=== PATIENT | female | born 1995 | race Caucasian/White ===

== ENCOUNTER 2019-12-23 01:44 | Outpatient (CLI) | payer BC, SELFPAY ==
[2019-12-23 22:35] LABS: SARS-CoV-2 RNA PCR Negative
== END 2019-12-23 01:45 | disposition home or self-care (01) ==
LOC: ANHCOVIDDT 01:44
PROVIDERS: PCP Family Medicine; Visit Provider Obstetrics & Gynecology
DX: Z01.812 Encounter for preprocedural laboratory examination (principal); Z11.59 Encounter for screening for other viral diseases
CPT/HCPCS: 87635; C9803; U0003

== ENCOUNTER 2019-12-23 08:48 | Outpatient (CLI) | payer BC, SELFPAY | END 2019-12-23 08:49 | disposition home or self-care (01) | LOC: ANHSURGERY 08:52 | PROVIDERS: PCP Family Medicine; Visit Provider Obstetrics & Gynecology | DX: Z01.818 Encounter for other preprocedural examination (principal); R10.2 Pelvic and perineal pain | CPT/HCPCS: 36415; 86850; 86900; 86901 ==

== ENCOUNTER 2019-12-25 01:37 | Day surgery (SDC) | payer BC, SELFPAY ==
[2019-12-14 13:31] VITALS: BMI 45.3
--- NOTE | 2019-12-23 07:20 | P.HP_ITS ---
H&P: HPI History of Present Illness Date/Time: 12/23/19 07:20 Chief complaint: Pelvic Pain Narrative: Nevaeh Briones is a 24 year old female G0 is admitted for diagnostic laparoscopy. She had complained of pelvic pain and does RUTH a period she underwent an ultrasound which showed a large ovarian cyst just above the uterus. I offered her watchful waiting versus considering laparoscopy. As this has been an ongoing issue she opted for the latter. Risks and benefits were reviewed including but not exclusive of , aspiration pneumonia, bleeding, transfusion, perforation injury to bowel, bladder, ureters, or other internal organs with need for open laparotomy. She voiced good understanding. She received the [facility] [place] [place] handout entitled laparoscopy. She asked to proceed Review of Systems Review of Systems: All systems reviewed & are unremarkable except as noted in HPI and below PMFSH Family History Family History Grandparent Hypertension Family history of congestive heart failure Diabetes mellitus Other Family history of arthritis Family history of lung cancer Family history of malignant neoplasm Social History Social History Smoking status: Never smoker Alcohol intake: current Drinks per week: 2 Substance use: former Substance use type: marijuana Last use: 04/2019 Spiritual care concerns: No Meds Home Medications and Allergies Home Medications Medication Instructions Recorded Confirmed Type norgestimate-ethinyl estradiol 1 tablet PO DAILY 12/14/19 12/14/19 History [Estarylla] Allergies Allergy/AdvReac Type Severity Reaction Status Date / Time Penicillins Allergy UNKNOWN Verified 12/14/19 13:32 REACTION Exam Const: General: no acute distress Eyes: General: appearance normal, both eyes and all related structures Neck: Neck: supple and no JVD Thyroid: thyroid normal Resp: Effort & Inspection: normal respiratory effort Auscultation: clear to auscultation bilaterally Cardio: Rate: regular rate Rhythm: regular rhythm GI: Inspection: non-distended GI Palp: Yes Soft to palpation, No Tenderness to palpation present (GI) and No Guarding due to palpation present (GI) Auscultation: normal bowel sounds : General: Yes bladder normal to inspection External Female Exam: normal external appearance Speculum Exam - Vagina: normal appearance of the vagina Speculum Exam - Cervix: normal appearance of the cervix Bimanual exam- vagina & uterus: uterine mobility normal Bimanual Exam- Adnexa, other: tender ( there is fullness felt above the uterus consistent with ovarian mass) Skin: General skin exam: no rashes or lesions noted Extrem: General: normal to inspection and no edema Psych: Mental Status: mental status grossly normal Affect: normal affect Assessment and Plan Additional Plan impression: Pelvic pain and ovarian cyst Plan: Diagnostic laparoscopy
--- NOTE | 2019-12-23 07:24 | PM.IMHP ---
H&P: HPI History of Present Illness Date/Time: 12/23/19 07:24 Chief complaint: Pelvic Pain Narrative: Nevaeh Briones is a 24 year old female is admitted for diagnostic laparoscopy secondary to pelvic pain. She has had dyspareunia and severe discomfort. She had a negative STD test. Ultrasound has shown relatively normal findings with possible fibroids. Free fluid was seen. Risks and benefits were reviewed including but not exclusive of , aspiration pneumonia, bleeding, transfusion, perforation near to bowel, bladder, ureters, or other internal organs with need for open laparotomy. She received the [facility] handout entitled laparoscopy. She had all questions answered. She asked to proceed Review of Systems Review of Systems: All systems reviewed & are unremarkable except as noted in HPI and below PMFSH Family History Family History Grandparent Hypertension Family history of congestive heart failure Diabetes mellitus Other Family history of arthritis Family history of lung cancer Family history of malignant neoplasm Social History Social History Smoking status: Never smoker Alcohol intake: current Drinks per week: 2 Substance use: former Substance use type: marijuana Last use: 04/2019 Spiritual care concerns: No Meds Home Medications and Allergies Home Medications Medication Instructions Recorded Confirmed Type norgestimate-ethinyl estradiol 1 tablet PO DAILY 12/14/19 12/14/19 History [Estarylla] Allergies Allergy/AdvReac Type Severity Reaction Status Date / Time Penicillins Allergy UNKNOWN Verified 12/14/19 13:32 REACTION Exam Const: General: no acute distress Eyes: General: appearance normal, both eyes and all related structures Neck: Neck: supple and no JVD Thyroid: thyroid normal Resp: Effort & Inspection: normal respiratory effort Auscultation: clear to auscultation bilaterally Cardio: Rate: regular rate Rhythm: regular rhythm GI: Inspection: non-distended GI Palp: Yes Soft to palpation, No Tenderness to palpation present (GI) and No Guarding due to palpation present (GI) Auscultation: normal bowel sounds : General: Yes bladder normal to palpation External Female Exam: normal external appearance Speculum Exam - Vagina: normal vaginal discharge and No vaginal bleeding Speculum Exam - Cervix: nontender Bimanual exam- vagina & uterus: bladder normal to palpation and No Cervical tenderness present OB/external & speculum: No vaginal bleeding Skin: General skin exam: no rashes or lesions noted Extrem: General: normal to inspection and no edema Psych: Mental Status: mental status grossly normal Affect: normal affect Assessment and Plan Additional Plan impression: Pelvic pain mildly enlarged uterus Plan: Diagnostic laparoscopy
--- NOTE | 2019-12-24 13:06 | WPDANESEPPF ---
Anes - Initial Pre Proc Eval Procedure: Operation Date: 12/25/19 11:30 Proposed Procedures p Diagnostic Laparoscopy - Curtis Sandhu MD Date/Time: 12/24/19 13:06 Surgeon: Curtis Sandhu MD Pre Op Diagnosis: Pelvic Pain Patient Data Age: 24 Gender: F Height: 1.68 m Weight: 127.46 kg Allergies Allergy/AdvReac Type Severity Reaction Status Date / Time Penicillins Allergy Intermediate UNKNOWN Verified 12/25/19 10:16 REACTION Home Medications Medication Instructions Recorded Confirmed Type norgestimate-ethinyl estradiol 1 tablet PO DAILY 12/14/19 12/25/19 History [Estarylla] hydrocodone-acetaminophen 1 tablet PO Q6H PRN #30 tablet 12/25/19 Rx Patient hx anesthesia problems: none Family hx anesthesia problems: none PMFSH Past Medical History Medical History (Updated 12/24/19 @ 13:07 by Milad Li MD) Anxiety Depression Morbid obesity with BMI of 40.0-44.9, adult Family History Family History Grandparent Hypertension Family history of congestive heart failure Diabetes mellitus Other Family history of arthritis Family history of lung cancer Family history of malignant neoplasm Social History Social History Smoking status: Never smoker Alcohol intake: current Drinks per week: 2 Substance use: former Substance use type: marijuana Last use: 04/2019 Spiritual care concerns: No Anes - Eval Final PreProcedure Day of Procedure 12/24/19 13:06 Patient weight: obese Heart: regular rate and rhythm Lungs: clear to auscultation and normal air movement Airway: Mallampati scale class II Neurological: alert and oriented Last oral intake: >/= 8 hours ASA classification: III Emergent: no Anesthetic plan: proceed Anesthesia type and monitoring: general ETT Informed Consent: The patient's anesthetic plan and its attendant risks and benefits were discussed with the patient/family/POA. Questions were solicited and answers provided to the satisfaction of the patient/family/POA.
[2019-12-25] VITALS (7 sets, daily range): BP systolic 116–144; BP diastolic 55–91; PULSE 45–98; RESP 14–20; TEMP 36.3–37.2; O2SAT 96–100
--- NOTE | 2019-12-25 06:24 | WPDHPUPDATE1 ---
History and Physical Update Update Date/Time: 12/25/19 06:24 History and Physical has been reviewed, including an updated exam of the patient. There are NO changes in the patient's condition. Risks, benefits, and alternatives have been discussed and questions answered. Patient agrees to proceed with procedure.
--- NOTE | 2019-12-25 06:25 | WPDHPUPDATE1 ---
History and Physical Update Update Date/Time: 12/25/19 06:25 History and Physical has been reviewed, including an updated exam of the patient. There are NO changes in the patient's condition. Risks, benefits, and alternatives have been discussed and questions answered. Patient agrees to proceed with procedure.
[2019-12-25] MEDS: ACETAMINOPHEN 500 MG TABLET 1000 MG PO (10:19)
[2019-12-25] MEDS: KETOROLAC 15 MG/ML VIAL (*BKC) IV PUSH (10:28)
[2019-12-25] MEDS: LACTATED RINGERS 1,000 ML 30 ML IV CONT (10:28)
--- NOTE | 2019-12-25 11:16 | PM.PROC ---
Procedure Note - Detailed Date of procedure: 12/25/19 Pre-op diagnosis: Pelvic Pain Surgeon: Curtis Sandhu MD Postop diagnosis: Pelvic pain / endometriosis anesthesia: General endotracheal Complications: None Findings: Normal-appearing ovaries and tubes endometrial implants along the left and right uterosacral ligaments. Normal-appearing appendix Procedure: Laparoscopic destruction of endometriosis Description of procedure. : Patient was prepped draped in the normal sterile fashion placed in the dorsal lithotomy position. Under excellent general trach anesthesia weighted speculum placed in posterior fornix of vagina. The anterior lip of the cervix grasped with a single-tooth tenaculum. The Villatoro's cannula was inserted the cervix and attached to the single-tooth. Bladder was emptied of clear urine. Gloves were changed. An infraumbilical incision made. The Veress needle passed in the abdomen. The abdomen was filled with CO2 gas [id number]. The 5mm trocar was advanced under direct visualization assuring no injury. The patient was placed in Trendelenburg and a suprapubic incision made. The 5mm trocar advanced under direct visualization assuring no injury. Small areas of endometriosis were seen photo documentation was undertaken. These were then point cauterized at 35 w per 2nd with monopolar cautery. Irrigation was undertaken until clear. The lower site removed. The gas removed from the abdomen. The incisions closed with 4 Monocryl glue. The patient was awakened. She went to recovery in satisfactory condition. All sponge, needle, instrument counts were correct. There were no immediate complications
[2019-12-25] MEDS: fentaNYL CITRATE INJ (*CRX) 100 MCG/2 ML VIAL 25 MCG IV PUSH (11:42)
== END 2019-12-25 13:00 | disposition home or self-care (01) ==
PROVIDERS: PCP Family Medicine; Visit Provider Obstetrics & Gynecology
PROC: (CPT 49320; principal; 2019-12-25 11:30)
DX: R10.2 Pelvic and perineal pain (principal); N80.3 Endometriosis of pelvic peritoneum; F41.8 Other specified anxiety disorders; E66.01 Morbid (severe) obesity due to excess calories; Z68.42 Body mass index [BMI] 45.0-49.9, adult
CPT/HCPCS: 58662; A9270; J1885; J2250; J3010; J7120

== ENCOUNTER 2020-08-31 07:22 | Outpatient (CLI) | payer BC, SELFPAY ==
--- NOTE | ~2020-08-31 | CT_ITS ---
EXAMINATION: CT abdomen pelvis w con DATE: 08/31/2020 08:11 INDICATION: Abdominal pain. History of endometriosis, left ovarian cysts TECHNIQUE: Computed tomography (CT) of the abdomen and pelvis was performed with 100 cc Omnipaque 350 intravenous contrast. Automated exposure control and iterative reconstruction technique were employe d. Exam dose: 1405.22 mGy-cm total exam DLP. COMPARISON: None. FINDINGS: Normal heart size. No pericardial or pleural effusion. The lung bases are clear of infiltra te or consolidation. The liver, gallbladder, spleen, pancreas, and adrenal glands and kidneys appear normal. Normal calibe r of the abdominal aorta. No intraperitoneal or retroperitoneal or pelvic mass lesion or adenopathy o r ascites. The uterus, adnexal areas and urinary bladder appear normal. Normal appendix. No bowel obstruction, bowel wall thickening, pneumatosis or intraperitoneal free air . Included skeletal structures are unremarkable. IMPRESSION: No significant abnormality Reviewed, dictated and finalized at [facility]. Reviewed, dictated and finalized at location [facility]. IMPRESSION: No significant abnormality
== END 2020-08-31 07:23 | disposition home or self-care (01) ==
PROVIDERS: PCP Family Medicine; Visit Provider Nurse Practitioner Family
DX: R10.9 Unspecified abdominal pain (principal); N83.202 Unspecified ovarian cyst, left side
CPT/HCPCS: 74177; Q9967

== ENCOUNTER 2021-08-08 10:39 | Outpatient (CLI) | payer BC, SELFPAY ==
[2021-08-08 10:56] LABS: Basophils Absolute Auto 0.1 K/mm3 (0.0-0.1); Basophils Percent Auto 0.9 % (0.2-1.2); Eosinophils Absolute Auto 0.3 K/mm3 (0-0.3); Eosinophils Percent Auto 4.4 % (0-4.4); Hematocrit 39.8 % (37.0-47.0); Hemoglobin 13.4 g/dL (12.0-15.0); Immature Granulocyte Absolute 0.02 K/mm3 (0.00-0.031); Immature Granulocyte Percent A 0.3 % (0-0.5); Lymphocytes Absolute Auto 1.86 K/mm3 (0.9-3.2); Lymphocytes Percent Auto 28.1 % (18.3-44.2); Mean Corpuscular HGB Conc 33.7 g/dl (32-36); Mean Corpuscular Hemoglobin 30.4 pg (26-34); Mean Corpuscular Volume 90.2 fl (80-100); Mean Platelet Volume 10.7 fl (7.4-10.4); Monocytes Absolute Auto 0.5 K/mm3 (0.1-0.6); Monocytes Percent Auto 7.4 % (2.6-8.5); Neutrophils Absolute Auto 3.9 K/mm3 (1.3-6.7); Neutrophils Percent Auto 58.9 % (45.5-73.1); Platelet Count Result 223 k/mm3 (150-375); Red Blood Count 4.41 M/mm3 (4.2-5.4); Red Cell Distribution Width 11.9 % (11.5-14.5); White Blood Count 6.6 K/mm3 (4.5-10.0)
[2021-08-08 11:14] LABS: Alanine Aminotransferase 42 U/L (6-35); Albumin Level 4.2 g/dL (3.5-5.1); Alkaline Phosphatase 57 U/L (38-126); Anion Gap 7 mmol/L (8-16); Aspartate Amino Transferase 32 U/L (14-36); Bilirubin,Total 0.2 mg/dL (0.2-1.3); Blood Urea Nitrogen 9 mg/dL (7-17); Calcium 8.7 mg/dL (8.4-10.2); Carbon Dioxide 26 mmol/L (22-30); Chloride 107 mmol/L (98-107); Estimated Glomerular Filt Rate > 60; Glucose 99 mg/dL (65-110); Potassium 4.3 mmol/L (3.4-5.0); Sodium 140 mmol/L (137-145)
== END 2021-08-08 10:40 | disposition home or self-care (01) ==
LOC: ANHLAB 10:42
PROVIDERS: PCP Family Medicine; Visit Provider Nurse Practitioner Family
DX: R19.7 Diarrhea, unspecified (principal); R10.9 Unspecified abdominal pain; R10.812 Left upper quadrant abdominal tenderness
CPT/HCPCS: 36415; 80053; 85025

== ENCOUNTER 2021-08-08 12:52 | Outpatient (CLI) | payer BC, SELFPAY ==
--- NOTE | ~2021-08-08 | CT_ITS ---
EXAMINATION: CT abdomen pelvis w con INDICATION: Upper abdominal pain TECHNIQUE: Computed tomographic images of the abdomen and pelvis were obtained after the administrati on of 100 cc of Omnipaque 350 intravenous contrast. The dose-length product (DLP) was 1468.76 mGy-cm. Automated exposure control and iterative reconstruction technique were employed. COMPARISON: 08/31/2020 FINDINGS: Minimal dependent atelectasis is present in the lung bases. The heart size is normal. The l iver, spleen, pancreas, gallbladder, and adrenal glands are normal. The kidneys are unremarkable. No pathologically enlarged abdominal or pelvic lymph nodes are identified. The appendix is normal. There is no free intraperitoneal gas or evidence of bowel obstruction. IMPRESSION: 1. No CT correlate for the patient's symptoms. Reviewed, dictated and finalized at location [facility].
== END 2021-08-08 12:53 | disposition home or self-care (01) ==
PROVIDERS: PCP Family Medicine; Visit Provider Nurse Practitioner Family
DX: R10.812 Left upper quadrant abdominal tenderness (principal); R10.9 Unspecified abdominal pain
CPT/HCPCS: 74177; Q9967

== ENCOUNTER 2021-08-31 02:05 | Day surgery (SDC) | payer BC, SELFPAY ==
[2021-08-24 09:47] VITALS: BMI 44.3
[2021-08-31 12:25] VITALS: BP 121/70; PULSE 74; RESP 18; TEMP 36.6; O2SAT 100
[2021-08-31] MEDS: LACTATED RINGERS 1,000 ML 150 ML IV CONT (12:35)
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
[2021-08-31 13:26] VITALS: BP 116/72; PULSE 68; RESP 18; O2SAT 100
[2021-08-31 13:36] VITALS: BP 130/76; PULSE 70; RESP 18; O2SAT 100
[2021-08-31 13:46] VITALS: BP 128/74; PULSE 72; RESP 16; O2SAT 100
== END 2021-08-31 14:10 | disposition home or self-care (01) ==
PROVIDERS: PCP Family Medicine; Visit Provider Internal Medicine Gastroenterology
PROC: 0DJ08ZZ Inspection of Upper Intestinal Tract, Via Natural or Artificial Opening Endoscopic (ICD-10-PCS; CPT 43235; principal; 2021-08-31 13:30)
DX: K31.89 Other diseases of stomach and duodenum (principal); K21.9 Gastro-esophageal reflux disease without esophagitis; E66.01 Morbid (severe) obesity due to excess calories; Z68.41 Body mass index [BMI] 40.0-44.9, adult; F41.9 Anxiety disorder, unspecified; F32.A Depression, unspecified; F12.90 Cannabis use, unspecified, uncomplicated
CPT/HCPCS: 43239; 87081; 88305; J2704; J7120

== ENCOUNTER 2021-09-08 15:07 | Outpatient (CLI) | payer BC, SELFPAY ==
[2021-09-14 15:30] LABS: Gliadin AB, IgG 100.2 U/mL (<15.0); TTG IGA AB >250.0 U/mL (<15.0)
== END 2021-09-08 15:08 | disposition home or self-care (01) ==
LOC: ANHLAB 15:07
PROVIDERS: PCP Family Medicine; Visit Provider Internal Medicine Gastroenterology
DX: R19.7 Diarrhea, unspecified (principal)
CPT/HCPCS: 36415; 83516; 86255

== ENCOUNTER 2021-12-19 16:12 | Outpatient (CLI) | payer BC, SELFPAY ==
[2021-12-19 16:42] LABS: Hemoglobin A1C 5.5 % (<5.7)
== END 2021-12-19 16:13 | disposition home or self-care (01) ==
LOC: ANHLAB 16:14
PROVIDERS: PCP Family Medicine; Visit Provider Nurse Practitioner Family
DX: R73.09 Other abnormal glucose (principal); F41.9 Anxiety disorder, unspecified
CPT/HCPCS: 36415; 83036; 84443

== ENCOUNTER 2022-01-03 13:40 | Outpatient (CLI) | payer BC, SELFPAY ==
--- NOTE | 2022-01-03 13:52 | ECHO_ITS ---
Patient Info Name: Nevaeh Briones Age: 26 years : 1995 Gender: Female Ht: 66 in Wt: 265 lbs BSA: 2.43 m2 HR: 71 bpm BP: 85 / 64 mmHg Technical Quality: Good Exam Date: 01/03/2022 2:32 PM Exam Location: [facility] Patient Status: Outpatient Admit Date: 01/03/2022 Staff Ordering Physician: Cristy Le Material Analyst: Gavino Torres, STEPHANIE, RT Attending Provider: Cristy Le Referring Physician: Mimi IBRAHIM; Exam Type: CA echo doppler color flow Study Info Indications Z82.79 - Family history of other congenital malformations, deformations and chromosomal abnormalities Complete two-dimensional, color flow and Doppler transthoracic echocardiogram is performed. Strain analysis performed. Summary 1. Complete two-dimensional, color flow and Doppler transthoracic echocardiogram is performed. 2. Left ventricular chamber dimension is normal. 3. Left ventricular systolic function is normal, estimated at 55-60%. 4. The left ventricular diastolic function is normal. 5. E/e' 6 is not elevated. 6. Global longitudinal strain is normal at -17.3%. Left Ventricle E/e' 6 is not elevated. Global longitudinal strain is normal at -17.3%. Left ventricular chamber dimension is normal. Left ventricular systolic function is normal, estimated at 55-60%. The left ventricular diastolic function is normal. Right Ventricle Right ventricular systolic function is normal and with normal TAPSE 2.3 cm. Right ventricular chamber dimension is normal. Left Atria Left atrial chamber dimension is normal. Right Atria Right atrial chamber dimension is normal. Aortic Valve The aortic valve is trileaflet. There is no aortic valve stenosis. There is no aortic valve regurgitation. Pulmonic Valve There is no pulmonic regurgitation. Mitral Valve There is no mitral valve stenosis. There is no mitral valve regurgitation. Tricuspid Valve There is no tricuspid valve regurgitation. Pericardium/Pleural There is no pericardial effusion. Inferior Vena Cava Normal inferior vena cava with >50% collapse upon inspiration consistent with normal right atrial pressure, 5 mmHg. Aorta The aortic root size at the sinus of Valsalva is normal. Left Ventricular Outflow Tract Name Value Normal LVOT 2D LVOT Diameter 2.0 cm LVOT Doppler LVOT Peak Gradient 6 mmHg LVOT Mean Gradient 3 mmHg LVOT VTI 25 cm LVOT VTI/AV VTI Ratio 0.7 LVOT Stroke Volume 77 ml LVOT CO 4.8 l/min LVOT CI 2.0 l/min/m2 Mitral Valve Name Value Normal MV Doppler MV Decel [place] 490 cm/s2 MV PHT 52
== END 2022-01-03 13:41 | disposition home or self-care (01) ==
PROVIDERS: PCP Family Medicine; Visit Provider Nurse Practitioner Family
DX: Z86.79 Personal history of other diseases of the circulatory system (principal); Z82.49 Family history of ischemic heart disease and other diseases of the circulatory system
CPT/HCPCS: 93306

== ENCOUNTER 2023-06-20 10:03 | Emergency (ER) | payer OTHER, SELFPAY ==
[2023-06-20 10:06] VITALS: BP 126/114; PULSE 87; RESP 16; TEMP 36.9; O2SAT 97
[2023-06-20 10:25] LABS: Basophils Percent Auto 0.1 % (0.2-1.2); Eosinophils Percent Auto 0.1 % (0-4.4); Hematocrit 40.3 % (37.0-47.0); Hemoglobin 13.4 g/dL (12.0-15.0); Immature Granulocyte Absolute 0.04 K/mm3 (0.00-0.031); Immature Granulocyte Percent A 0.3 % (0-0.5); Lymphocytes Percent Auto 6.1 % (18.3-44.2); Mean Corpuscular HGB Conc 33.3 g/dl (32-36); Mean Corpuscular Hemoglobin 29.8 pg (26-34); Mean Corpuscular Volume 89.8 fl (80-100); Mean Platelet Volume 10.4 fl (7.4-10.4); Monocytes Absolute Auto 0.3 K/mm3 (0.1-0.6); Monocytes Percent Auto 2.4 % (2.6-8.5); Neutrophils Absolute Auto 10.5 K/mm3 (1.3-6.7); Platelet Count Result 303 k/mm3 (150-375); Red Blood Count 4.49 M/mm3 (4.2-5.4); Red Cell Distribution Width 12.4 % (11.5-14.5); White Blood Count 11.5 K/mm3 (4.5-10.0)
[2023-06-20 10:34] LABS: Alanine Aminotransferase 21 U/L (6-35); Albumin Level 4.6 g/dL (3.5-5.1); Alkaline Phosphatase 73 U/L (38-126); Anion Gap 14 mmol/L (4-12); Aspartate Amino Transferase 19 U/L (14-36); Bilirubin,Total 0.5 mg/dL (0.2-1.3); Blood Urea Nitrogen 8 mg/dL (7-17); Calcium 9.6 mg/dL (8.4-10.2); Carbon Dioxide 16 mmol/L (22-30); Chloride 107 mmol/L (98-107); Estimated CRCL calculation 172 ml/min; Estimated Glomerular Filt Rate > 60; Glucose 141 mg/dL (65-110); Lipase 59 U/L (23-300); Potassium 3.7 mmol/L (3.4-5.0); Sodium 137 mmol/L (137-145)
[2023-06-20 10:40] VITALS: O2SAT 100
[2023-06-20] MEDS: SODIUM CHLORIDE 0.9% IV 1,000 ML 999 ML IV CONT (10:46)
[2023-06-20] MEDS: ONDANSETRON INJ 4 MG/2 ML VIAL IV PUSH (10:47)
[2023-06-20] MEDS: MORPHINE SULFATE (*CRX) 4 MG/ML INJ IV PUSH (10:47)
[2023-06-20 10:51] LABS: Appearance Urine Clear (Clear); Bilirubin Urine Negative (Negative); Blood Urine Negative (Negative); Color Urine Yellow (Yellow); Glucose Urine UA Negative (Negative); Ketones Urine 1+ mg/dL (Negative); Leukocyte Esterase Ur Negative LEU/UL (Negative); Nitrate Urine Negative (Negative); Protein Urine Negative (Negative); Specific Grav Ur 1.014 (1.001-1.035); Urobilinogen Urine 0.2 mg/dL (<2.0)
[2023-06-20 11:05] LABS: Add Urine Microscopic? NO
[2023-06-20 11:45] VITALS: O2SAT 99
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
[2023-06-20 12:15] VITALS: BP 119/65; PULSE 83; RESP 12; O2SAT 99
[2023-06-20 12:18] VITALS: BP 132/64; PULSE 86; RESP 16; O2SAT 99
== END 2023-06-20 14:00 | disposition home or self-care (01) ==
PROVIDERS: Emergency Provider Emergency Medicine; PCP Family Medicine
DX: K52.9 Noninfective gastroenteritis and colitis, unspecified (principal); E66.01 Morbid (severe) obesity due to excess calories; Z68.42 Body mass index [BMI] 45.0-49.9, adult
CPT/HCPCS: 36415; 80053; 81003; 81025; 83690; 85025; 96374; 96375; 99284; J2270; J2405; J7030

== ENCOUNTER 2024-07-18 08:14 | Emergency (ER) | payer OTHER, SELFPAY ==
--- OUTSIDE RECORDS SUMMARY | 2024-07-18 08:16 | XMS_ITS ---
Author Organization [facility] [place] ([address]) Address [address] [place] [address] Care Team Providers Care Engagement Manager Name Role Phone Renée EDDY, Cristóbal Primary Care Provider Unavaila Yana Light Unavailable [phone] ZZ-Migration, Provider Unavailable Unavailab le REASON FOR VISIT [facility] Conversion Encounter Medications Medication SIG (Take, Route, Frequency, Duration) Notes Start Date End Date Status Levocetirizine Dihydrochloride 5 MG 1 tab(s) orally once a day (in the evening) for 30 day(s) 08/18/2019 Active CONTROL PILL 1 TABLET BY MOUTH DAILY for 30 DAYS *Please review for potential replacement for e-prescription and drug interaction check* Active predniSONE 20 MG 2 tab(s) orally once a day for 4 day(s) 08/18/2019 Active Xyzal Allergy 24HR 5 MG 1 tab(s) orally once a day (in the evening) for 30 day(s) Active Auvi-Q 0.3 MG/0.3ML as directed intramuscularly once for 30 day(s) 08/18/2019 Active Nasacort Allergy 24HR 55 MCG/ACT 2 spray(s) intranasally once a day for 30 day(s) 08/18/2019 Active Montelukast Sodium 10 MG 1 tab(s) orally once a day for 30 day(s) 08/18/2019 Active Fexofenadine HCl 180 MG 1 tab(s) orally once a day for 30 day(s) 08/18/2019 Active Encounters Encounter Location Date Provider Diagnosis [place] [address] [place] [address] 08/03/2023 Provider ZARINA-Migration Plan Of Treatment No Information Progress Notes * Nevaeh WOODOB: 7 (28 yo F)Acc No.[id number]:08/03/2023 Patient: Nevaeh DARLING Provider: Nishant Sierra :1995 A ge:27 Y S ex:Female Date:08/03/2023 Address:[address] [place] [address], [facility] Pcp:Cristóbal Chinchilla MD Subjective: * Chief Complaints: * 1 . [facility] To Med[facility] Conversion Encounter. * Medical History: * Medications: T aking Auvi-Q 0.3 MG/0.3ML Solution Auto-injector as directed intramuscularly once , Taking Montelukast Sodium 10 MG Tablet 1 tab(s) orally once a day , Taking Nasacort Allergy 24HR 55 MCG/ACT Aerosol 2 spray(s) intranasally once a day , Taking Fexofenadine HCl 180 MG Tablet 1 tab(s) orally once a day , Taking Levocetirizine Dihydrochloride 5 MG Tablet 1 tab(s) orally once a day (in the evening) , Taking predniSONE 20 MG Tablet 2 tab(s) orally once a day , Taking CONTROL PILL 1 TABLET BY MOUTH DAILY , Notes to Pharmacist: *Please review for potential replacement for e-prescription and drug interaction check*, Taking Xyzal Allergy 24HR 5 MG Tablet 1 tab(s) orally once a day (in the evening) Objective: * Vitals: Assessment: Plan: * Treatment: * Billing Information: * Visit Code: * Procedure Codes: * Electronic signature of Prov syedr ZZ-Migration on 07/18/2024 at 08:16 AM CDT Sign off status: Pending * Provider: Nishant Sierra Date: 08/03/2023 Generated for Johana rosales/Jeff/eTransmitting on: 07/18/2024 08:16 AM CDT
--- OUTSIDE RECORDS SUMMARY | 2024-07-18 08:16 | XMS_ITS | Referral Summary ---
Author Organization [facility] Address [address] [place] [address] Care Team Providers Care Western Tack Assembly Line Worker Name Role Phone Cristóbal Chinchilla MD Primary Care Provider [phone] Allergies Active Allergy Reactions Criticality Noted Date Comments Gluten Stomach upset Low 05/01/2022 Medications HYDROcodone-acetam inophen (NORCO) 5-325 mg per tabletIndications: Pain Take 1 tablet by mouth every 4 (four) hours as needed for pain 20 tablet 05/04/19 23 Active Additional Information Patient not taking.Reported on 07/19/2022 Estarylla 0.25-35 mg-mcg per tablet 04/13/19 23 Active ondansetron ODT (ZOFRAN-ODT) 4 mg disintegrating tablet Take 1 tablet (4 mg total) by mouth every 8 (eight) hours as needed for nausea or vomiting 20 tablet 11/18/19 23 Active loperamide (IMODIUM) 2 mg capsule Take 1 capsule (2 mg total) by mouth 4 (four) times a day as needed for diarrhea 12 capsule 11/18/19 23 Active scopolamine 1 mg over 3 days patch [address] 1 patch on the skin every third day 3 patch 06/21/19 24 Active Active Problems No known active problems Social History Tobacco Use Types Packs/Day Years Used Date Smoking Tobacco: Every Day Vaping Tobacco Cessation:Ready to Q uit: Not Asked; Counseling Given: Not Answered AUDIT-C Answer Date Recorded Q1: How often do you have a drink containing alc ohol? 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 Gender Identity Not on file Sexual Orientation Not on file Last Filed Vital Signs Vital Sign Reading Time Taken Comments Blood Pressure 152/96 06/21/2023 11:42 AM CDT Pulse 66 06/21/2023 11:42 AM CDT Temperature 37.2 C (99 F) 06/21/2023 9:16 AM CDT Respiratory Rate 22 06/21/2023 11:42 AM CDT Oxygen Saturation 100% 06/21/2023 11:42 AM CDT Inhaled Oxygen Concentration - - Weight 133.8 kg (295 lb) 06/21/2023 9:16 AM CDT Height 167.6 cm (5' 6) 06/21/2023 9:16 AM CDT Body Mass Index 47.61 06/21/2023 9:16 AM CDT Plan of Treatment Not on file Insurance [employer] OPEN ACCESS [employer] OPEN ACCESS Care Teams Western Tack Assembly Line Worker Relationship Specialty Start Date End Date Cristóbal Chinchilla MD PCP - General 07/08/18
--- OUTSIDE RECORDS SUMMARY | 2024-07-18 08:16 | XMS_ITS | Clinical Summary ---
Author Organization [facility] Address [address] [place] [address] Care Team Providers Care Communications Equipment Supervisor Name Role Phone Cristóbal Chinchilla MD Primary Care Provider [phone] Allergies Active Allergy Reactions Criticality Noted Date [...] Active Active Problems No known active problems Medical History Medical History Date Comments Allergies Anxiety Depression Family History Medical History Relation Name Comments No Known Problems Father No Known Problems Mother Relation Name Status Comments Father Mother Social History Tobacco Use Types Packs/Day Years [...] on file 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 Gender Identity Not on file Sexual Orientation Not on file Obstetrics History Last Filed Vital Signs Vital Sign Reading [...] 06/21/2023 9:16 AM CDT Plan of Treatment Health Maintenance Due Date Last Done Comments Cervical Cancer Screening 1996 Depression Screening 1996 Hepatitis C Screening 1996 Varicella Vaccines (1 of 2 - 13+ 2-dose series) 2009 Hepatitis B Screening 2014 Regular Well Visit/Exam 18-64 2014 Pneumococcal vaccine <65 (1 of 2 - PCV) 09/04/2015 DTaP/Tdap/Td Vaccine (2 - Td or Tdap) 08/30/2020 08/30/2010 Influenza Vaccine (Season Ended) 2024 HPV Vaccines Aged Out No longer eligi ble based on patient's age to complete this topic Insurance [employer] OPEN ACCESS Care Teams Communications Equipment Supervisor Relationship Specialty Start Date End Date Cristóbal Chinchilla MD PCP - General 07/08/18
--- OUTSIDE RECORDS SUMMARY | 2024-07-18 08:16 | XMS_ITS | Clinical Summary ---
Author Organization [facility] Address [address] [place] [address] Care Team Providers Care Fish Bin Tender Name Role Phone Cristóbal Chinchilla MD Primary Care Provider [phone] Source Comments [facility],non-owned Affiliates and Associated Physician Practices is amultiple site organization consisting of ambulatory clinics and hospital sitesin [place], [place], [place] and [place]. This disclosure is being madepursuant to the Care Everywhere program and may not contain all information available regarding this patient. 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 Gender Identity Not on file Sexual Orientation Not on file Plan of Treatment Health Maintenance Due Date Last Done Comments PAP SMEAR 1995 HIV SCREENING 09/04/2011 HEPATITIS C SCREENING 08/30/2014 DTAP/TDAP/TD VACCINES (1 - Tdap) 09/04/2015 HEPATITIS B VACCINE (1 of 3 - 19+ 3-dose series) 09/04/2015 COVID-19 VACCINE ( - 2023-2 5 season) 2023 DEPRESSION SCREENING 02/19/2024 INFLUENZA VACCINE (Season Ended) 2024 ZOSTER VACCINE (1 of 2) 2046 HIB VACCINE Aged Out No longer eligi ble based on patient's age to complete this topic HPV VACCINE Aged Out No longer eligi ble based on patient's age to complete this topic MENINGOCOCCAL (Group B) VACC INE SHARED DECISION-MAKING Aged Out No longer eligibl e based on patient's age to complete this topic MENINGOCOCCAL GROUPS A/C/Y/W VACCINE Aged Out No longer eligible b ased on patient's age to complete this topic PNEUMOCOCCAL VACCINE Aged Out No long er eligible based on patient's age to complete this topic Insurance [employer] Care Teams Fish Bin Tender Relationship Specialty Start Date End Date Cristóbal Chinchilla MD [address] [place] [address] PCP - General 10/22/17
--- OUTSIDE RECORDS SUMMARY | 2024-07-18 08:16 | XMS_ITS | Patient Health Record ---
Author Organization [facility] [place] ([address]) Address [address] [place] [address] Care Team Providers Care Appliance Painter And Refinisher Name Role Phone Renée EDDY, Cristóbal Primary Care Provider Unavaila Yana Light Unavailable [phone] ZZ-Migration, Provider Unavailable Unavailab le Reason For Referral No Information Medications Medication SIG (Take, Route, Frequency, Duration) Notes Start Date End Date Status PREDNISONE 20 mg 2 tab(s) orally once a day for 4 day(s) 08/18/2019 Active LEVOCETIRIZINE DIHYDROCHLORIDE 5 mg 1 tab(s) orally once a day (in the evening) for 30 day(s) 08/18/2019 Active FEXOFENADINE HYDROCHLORIDE 180 mg 1 tab(s) orally once a day for 30 day(s) 08/18/2019 Active Auvi-Q 0.3 MG/0.3ML as directed intramuscularly once for 30 day(s) 08/18/2019 Active Nasacort Allergy 24HR 55 MCG/ACT 2 spray(s) intranasally once a day for 30 day(s) 08/18/2019 Active Montelukast Sodium 10 MG 1 tab(s) orally once a day for 30 day(s) 08/18/2019 Active Levocetirizine Dihydrochloride 5 MG 1 tab(s) orally once a day (in the evening) for 30 day(s) 08/18/2019 Active Fexofenadine HCl 180 MG 1 tab(s) orally once a day for 30 day(s) 08/18/2019 Active CONTROL PILL 1 TABLET BY MOUTH DAILY for 30 DAYS *Please review for potential replacement for e-prescription and drug interaction check* Active predniSONE 20 MG 2 tab(s) orally once a day for 4 day(s) 08/18/2019 Active Xyzal Allergy 24HR 5 MG 1 tab(s) orally once a day (in the evening) for 30 day(s) Active XYZAL 5 mg 1 tab(s) orally once a day (in the evening) for 30 day(s) Active NASACORT ALLERGY 24HR 55 mcg/inh 2 spray(s) intranasally once a day for 30 day(s) 08/18/2019 Active MONTELUKAST SODIUM 10 mg 1 tab(s) orally once a day for 30 day(s) 08/18/2019 Active AUVI -Q 0.3 mg as directed intramuscularly once for 30 day(s) 08/18/2019 Active Problems Problem Type SNOMED Code ICD Code Onset Dates Problem Status W/U Status Risk Notes Problem Chronic allergic conjunctivitis (84033807) Other chronic allergic conjunctivitis (H10.45) Active confirmed Problem Allergic rhinitis caused by pollen (disorder) (52300080) Allergic rhinitis due to pollen (J30.1) Active confirmed Problem Other allergic rhinitis (J30.89) Active confirmed Problem Cough (80839092) Cough (R05) Active confirmed Problem Allergic rhinitis caused by animal hair and dander (407901589704046) Allergic rhinitis due to animal (cat) (dog) hair and dander (J30.81) Active confirmed Encounters Encounter Location Date Provider Diagnosis [address] [address] 08/03/2023 Provider ZZ-Migration Plan Of Treatment No Information Insurance Providers Payer Name Payer Address Payer Phone Subscriber Number Group Number Insured Name Patient Relationship to Insured Coverage Start Date Coverage End Date [facility] [address] [place] [phone] [id number] Alessandra Cruz Child - Insured has Financial Responsibility Medical (General) History Surgical History Surgery Date(Month/Year) Diagnostic Lap 11/14/2014 Diagnostic Lap 11/18/2017 [place] Teeth Removal 05/17/2017
--- OUTSIDE RECORDS SUMMARY | 2024-07-18 08:16 | XMS_ITS | Clinical Summary ---
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 Gender Identity Not on file Sexual Orientation Not on file Plan of Treatment Health Maintenance Due Date Last Done Comments Hepatitis C Virus (HCV) Screening 1996 Human Papillomavirus (HPV) Immunization (1 - 3-dose series) 09/04/2011 Hepatitis B Immunization (1 of 3 - 19+ 3-dose series) 09/04/2015 Pap Smear 2017 Influenza Immunization (#1) 2023 SARS-COV-2 Immunization (2023- season) 2023 Respiratory Syncytial Virus (RSV) Immunization (Adult) (1 - 1-dose 75+ series) 09/04/2071 DTaP/Tdap/Td Immunization Discontinued 08/30/2010 TdaP Immunization Completed 08/30/2010 Meningococcal Immunization (ACWY) Aged Out No longer eligible based on patient's age to complete this topic Pneumococcal Immunization Combined Aged Out No longer eligible based on patient's age to complete this topic Rotavirus Immunization Aged Out No lo nger eligible based on patient's age to complete this topic
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
[2024-07-18 08:22] VITALS: BP 120/60; PULSE 92; RESP 18; TEMP 36.7; O2SAT 100
== END 2024-07-18 08:39 | disposition home or self-care (01) ==
PROVIDERS: Emergency Provider Nurse Practitioner Family; PCP Family Medicine
DX: L03.114 Cellulitis of left upper limb (principal); S50.862A Insect bite (nonvenomous) of left forearm, initial encounter; W57.XXXA Bitten or stung by nonvenomous insect and other nonvenomous arthropods, initial encounter; E66.01 Morbid (severe) obesity due to excess calories; Z68.43 Body mass index [BMI] 50.0-59.9, adult; F41.9 Anxiety disorder, unspecified; F32.A Depression, unspecified
CPT/HCPCS: 99213; G0463